=== PATIENT | male | born 1945 | race Caucasian/White ===

== ENCOUNTER 2020-01-06 23:11 | Inpatient (IN) ==
[2020-01-06] MEDS ORDERED: HYDROmorphone INJ 1 MG/ML SYRINGE IV STA (23:25)
[2020-01-06] MEDS ORDERED: HYDROmorphone INJ 0.5 MG/0.5 ML SYR IV PRN (23:25)
--- NOTE | 2020-01-06 23:31 | Emergency Department Note ---
ED Provider Note Name: MARYAM GONZALEZ Age: 74 Sex: M Arrives Via: Ambulance Informant: Patient, EMS ED Provider: Eris Velázquez MD Chief Complaint: Right thigh pain Impression: Closed fracture of proximal end of femur Fall Hematoma of right thigh Medical Decision Making: Very pleasant male with history of htn, dlp, and metastatic prostate ca arrives after trip and fall injuring right thigh. No head, neck or other injury. No vascular injury by exam with distal n/v intact. Work up with mild hyperglycemia otherwise OK. Imaging with right proximal femur fracture. Otherwise no acute fracture/dislocation. Comfortable with pain meds. Discussed with Ortho who agree with treating here and that no need for traction at this time. Hospitalist in to evaluate further. Triage/Nursing Notes reviewed by Me Differentials:Fracture, dislocation, n/v injury, non-mechanical fall, amongst other pathologies. Vital Signs: reviewed and remarkable for no significant abnormalities Interventions: Saline Lock, Dilaudid 1mg IV Labs:Reviewed and remarkable for mild hyperglycemia Imaging: X ray results are stated below per my interpretation: Chest: 1 view: No infiltrate, no effusion, normal cardiac border. Pelvis: 1 view: Right femur fracture Femur Right: 3 view: Displaced proximal femur fracture Tib Fib Left: 1 view: No fracture, no dislocation EKG:Per My Interpretation: Indication Pre-Op: NSR 65 bpm, qtc 484 with PVC. No Ectopy. Does have a slightly prolonged QTC for his rate. No previous for comparison Consults:Dr Brooks Ortho - admit to med, hold off on traction for now. Plan: Disposition:Hospitalization. Condition: Good Blood pressure:Normal.No Referral necessary History of Present Illness:74 / M arrives for evaluation of right thigh pain. Patient was walking around [place] site this evening and tripped over table landing awkwardly on right hip. Patient notes unable to walk due to pain and leg being "wobbly." Denies other injuries. No LOC, head injury, neck pain, cp, sob, back pain, nor other symptoms. Denies other injuries. Denies blood thinner use other than asa 81mg Daily. He makes clear no weakness, sob, cp, lightheadedness prior to fall. 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 Patient notes pain worse with movement, better with rest. No previous joint/bone issues other than prostate cancer with concerns of spread to bones. ROS: See above HPI for pertinent positives & negatives. A total of 10 systems re viewed and were otherwise negative. 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 EYES: No scleral icterus, unremarkable pupils. ENT: Mucous membranes moist, no nasal congestion. NECK: No masses appreciated, nomeningismus, trachea is midline. RESPIRATORY: No dyspnea. Clear to auscultation and equal bilaterally. No wheeze, no rhonchi. CARDIOVASCULAR: Regular rate and rhythm.No murmurs, rubs, gallops appreciated. GASTROINTESTINAL: Abdomen soft, non-tender, no peritonitis.Bowel sounds positive.No masses appreciated. BACK: No midline tenderness, no CVA tenderness EXTREMITIES: deformity right proximal thigh with TTP, contusion left anterior tibia, otherwise normal motion all extremities, no cyanosis, no edema. NEUROLOGIC: Alert and oriented, no acute motor or sensory deficits, no focal weakness, cranial nerves grossly intact. SKIN: No rash, no jaundice, no diaphoresis. PSYCH: Appropriate GCS: 15 ED Course: Times/Reassessments: Much improved with IV dilaudid Eris Velázquez MD Impression & Plan Closed fracture of proximal end of femur, Fall, Hematoma of right thigh Past Med/Surg History Social History Preferred Language: Turkmen Communication Ability: Effective Pai Gow Manager Required: No Beliefs That Will Affect Care: None Current Living Situation: Spouse Feels Safe at Home: Yes Safety Concerns: Feels Safe At This Time Smoking Status: Never smoker Hx Alcohol Use: Yes Alcohol type: beer Hx Substance Use: No Results & Data Vital Signs Vital Signs - 24 hr 01/06/20 23:25 01/06/20 23:46 01/07/20 00:31 Temperature 36.4 C L Temperature Source Oral Pulse Rate 67 Pulse Rate [Bilateral Apical] 61 62 Respiratory Rate 18 18 18 Blood Pressure 132/76 Blood Pressure [Right Arm] 118/72 110/71 Blood Pressure Mean 94 Blood Pressure Mean [Right Arm] 87 84 Blood Pressure Position Lying Pulse Oximetry 94 92 93 Oxygen Delivery Method Room Air Room Air Room Air Sepsis Recent Fever Within 48 Hours No Sepsis Action Taken by Nursing No Action Required Laboratory Data Result diagrams: 01/06/20 23:30 01/06/20 23:30 Lab Results 01/06/20 01/06/20 01/06/20 Range/Units 23:30 23:30 23:30 WBC 12.62 H (4.8-10.8) K/uL RBC 4.23 L (4.7-6.1) M/uL Hgb 13.0 L (14.0-18.0) g/dL Hct 37.4 L (42-52) % MCV 88.4 (80-100) fL MCH 30.7 (25-34) pg MCHC 34.8 (32-36) g/dL RDW Std Deviation 44.5 (36.4-46.3) fL RDW Coeff of Pamela 13.7 (11.5-14.5) % Plt Count 198 (130-400) K/uL MPV 9.9 (7.4-10.4) fL Immature Gran % (Auto) 0.3 % Neut % (Auto) 56.2 % Lymph % (Auto) 32.5 % [place] % (Auto) 8.6 % Eos % (Auto) 2.2 % Baso % (Auto) 0.2 % Immature Gran # (Auto) 0.04 H (0.00-0.02) K/uL Neut # (Auto) 7.09 H (1.4-6.5) K/uL Lymph # (Auto) 4.10 H (1.2-3.4) K/uL [place] # (Auto) 1.08 H (0.11-0.59) K/uL Eos # (Auto) 0.28 (0-0.5) K/uL Baso # (Auto) 0.03 (0-0.2) K/uL PT 11.5 (9.0-12.0) Seconds INR 1.1 (0.9-1.1) APTT 22.8 (21.0-31.0) Seconds PTT Ratio 0.8 Sodium (136-145) mmol/L Potassium (3.5-5.1) mmol/L Chloride (98-107) mmol/L Carbon Dioxide (21-32) mmol/L Anion Gap (3-11) BUN (7-18) mg/dl Creatinine (0.6-1.4) mg/dl Est Cr Clr Drug Dosing ml/min Est GFR ( Amer) Est GFR (Non-Af Amer) BUN/Creatinine Ratio (10-20) Glucose (70-99) mg/dl Calcium (8.5-10.1) mg/dl Magnesium (1.8-2.4) mg/dl Blood Type A Positive Antibody Screen NEGATIVE 01/06/20 Range/Units 23:30 WBC (4.8-10.8) K/uL RBC (4.7-6.1) M/uL Hgb (14.0-18.0) g/dL Hct (42-52) % MCV (80-100) fL MCH (25-34) pg MCHC (32-36) g/dL RDW Std Deviation (36.4-46.3) fL RDW Coeff of Pamela (11.5-14.5) % Plt Count (130-400) K/uL MPV (7.4-10.4) fL Immature Gran % (Auto) % Neut % (Auto) % Lymph % (Auto) % [place] % (Auto) % Eos % (Auto) % Baso % (Auto) % Immature Gran # (Auto) (0.00-0.02) K/uL Neut # (Auto) (1.4-6.5) K/uL Lymph # (Auto) (1.2-3.4) K/uL [place] # (Auto) (0.11-0.59) K/uL Eos # (Auto) (0-0.5) K/uL Baso # (Auto) (0-0.2) K/uL PT (9.0-12.0) Seconds INR (0.9-1.1) APTT (21.0-31.0) Seconds PTT Ratio Sodium 135 L (136-145) mmol/L Potassium 3.2 L (3.5-5.1) mmol/L Chloride 104 (98-107) mmol/L Carbon Dioxide 28 (21-32) mmol/L Anion Gap 3.0 (3-11) BUN 27 H (7-18) mg/dl Creatinine 0.99 (0.6-1.4) mg/dl Est Cr Clr Drug Dosing 78.3 ml/min Est GFR ( Amer) 85.4 Est GFR (Non-Af Amer) 73.7 BUN/Creatinine Ratio 27.2 H (10-20) Glucose 182 H (70-99) mg/dl Calcium 8.5 (8.5-10.1) mg/dl Magnesium 2.2 (1.8-2.4) mg/dl Blood Type Antibody Screen Administered Medications Potassium Chloride 40 meq/ (Sodium Chloride) 1,020 mls @ 50 mls/hr IV .[id number] Stop: 02/06/20 02:39 Last Admin: 01/07/20 03:10 Dose: 50 mls/hr Documented by: [id number] Discontinued Medications Hydromorphone HCl (Dilaudid) 1 mg IV NOW STA Stop: 01/06/20 23:26 Last Admin: 01/06/20 23:41 Dose: 1 mg Documented by: [id number] Morphine Sulfate (Morphine Sulfate) Confirm Administered Dose 4 mg .ROUTE .STK- MED ONE Stop: 01/07/20 02:43 Last Admin: 01/07/20 02:45 Dose: 4 mg Documented by: [id number] Potassium Chloride (Klor-Con M20) 40 meq PO NOW STA Stop: 01/07/20 01:11 Last Admin: 01/07/20 01:47 Dose: 40 meq Documented by: [id number] Potassium Chloride (Klor-Con M20) 40 meq PO ONE ONE Stop: 01/07/20 03:01 Last Admin: 01/07/20 03:10 Dose: 40 meq Documented by: [id number] Discharge Plan Visit Data *Final* Discharge Date/Time: 01/07/20 02:20 Chief Complaint: Leg Injury/Pain Stated Complaint: LEG INJURY/FALL Other Complaint: Fall ED Provider: Eris Velázquez Discharge Problem: Closed fracture of proximal end of femur, Fall, Hematoma of right thigh Patient Disposition: Admitted As Inpatient Discharge Instructions Interventions: ED Discharge Assessment Last Done: 01/07/20 02:20 Discharge Problem: Fall Qualifiers: Encounter type: initial encounter Qualified Code(s): W19.XXXA - Unspecified fall, initial encounter Hematoma of right thigh Qualifiers: Encounter type: initial encounter Qualified Code(s): S70.11XA - Contusion of right thigh, initial encounter
[2020-01-06 23:46] LABS: Basophils # (auto) 0.03 K/uL (0-0.2); Basophils % (auto) 0.2 %; Eosinophils # (auto) 0.28 K/uL (0-0.5); Eosinophils % (auto) 2.2 %; Hematocrit (blood only) 37.4 % (42-52); Immature Granulocytes # (auto) 0.04 K/uL (0.00-0.02); Immature Granulocytes % (auto) 0.3 %; Lymphocytes % (auto) 32.5 %; Mean Corpuscular Hemoglobin 30.7 pg (25-34); Mean Corpuscular Hgb Conc 34.8 g/dL (32-36); Mean Corpuscular Volume 88.4 fL (80-100); Mean Platelet Volume 9.9 fL (7.4-10.4); Monocytes # (auto) 1.08 K/uL (0.11-0.59); Monocytes % (auto) 8.6 %; Neutrophils # (auto) 7.09 K/uL (1.4-6.5); Neutrophils % (auto) 56.2 %; Platelet Count 198 K/uL (130-400); RDW Coefficient of Variation 13.7 % (11.5-14.5); RDW Standard Deviation 44.5 fL (36.4-46.3); Red Blood Count 4.23 M/uL (4.7-6.1); White Blood Count 12.62 K/uL (4.8-10.8)
[2020-01-06 23:57] LABS: INR 1.1 (0.9-1.1); Partial Thromboplastin Ratio 0.8; Partial Thromboplastin Time 22.8 Seconds (21.0-31.0); Prothrombin Time 11.5 Seconds (9.0-12.0)
[2020-01-07 00:12] LABS: BUN Creatinine Ratio 27.2 (10-20); Calcium 8.5 mg/dl (8.5-10.1); Creatinine Clr Calc Pharmacy 78.3 ml/min; Est GFR (African American) 85.4; Est GFR (Non-African American) 73.7; Potassium 3.2 mmol/L (3.5-5.1)
[2020-01-07] MEDS ORDERED: POTASSIUM CHLORIDE 20 MEQ TABCR PO STA (01:10)
[2020-01-07 01:20] LABS: Magnesium 2.2 mg/dl (1.8-2.4)
--- NOTE | 2020-01-07 01:40 | History & Physical Report ---
Date of Service January 07, 2020 Assessment & Plan (1) Hip fracture, right: Traumatic hip fracture hypertension, stable PVCs on EKG likely secondary to hypokalemia secondary to diuretic Rx Systolic murmur on exam hyperlipidemia on statin Rx hx prediabetes as per patient prostate cancer status post surgery on Xgeva and Lupron Rx New onset anemia (patient unaware of prior diagnosis) Medical telemetry given PVCs Replace potassium, IVF, hold home diuretic for now Initiate beta-merlyn to suppress ectopy if still persistent despite normokalemia TTE RE systolic murmur Orthopedics consult RE R right hip fracture (ER provider already in touch with Dr. Brooks who recommends possible surgery in a.m. pending evaluation.) Final medical evaluation pending TTE results Check hemoglobin A1c Anemia work-up, transfuse PRBC if hemoglobin less than 7 and or for symptomatic anemia DVT prophylaxis. SCDs RE possible surgery (Recommend pharmacologic anticoagulation once bleeding risk is deemed to be minimal eligible pending Orthopedics evaluation.) Full code Text document was generated using [employer] voice recognition software. It may contain grammatical or spelling errors. Kindly contact undersigned for clarification of any documentation item in question. History of Present Illness Chief Complaint: Right hip pain Primary Care Provider: Dr. Talbot from [place], [place] History obtained from patient and records. Medical history significant for hypertension, hyperlipidemia, gout, prediabetes, prostate cancer status post surgery on Xgeva and Lupron Rx. Patient at a local campsite the last few days the last few days. His right hip bumped into a table at the [facility] site because it was too dark. Patient experience excruciating right hip pain which made him sit down. No chest pain, S OB, no LOC. Patient brought to the ER for evaluation. 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 Baseline Functionality : Still able to do housework at home without rest/exertional chest pain, S OB prior to injury Allergies Allergy/AdvReac Type Severity Reaction Status Date / Time No Known Allergies Allergy Unverified 01/07/20 00:56 Home Medications Home Medications Medication Instructions Recorded Confirmed Type allopurinol 300 mg PO DAILY 01/07/20 01/07/20 History aspirin 81 mg PO QAM 01/07/20 01/07/20 History calcium carbonate-vitamin D3 1 tab PO TID 01/07/20 01/07/20 History [Caltrate 600 plus D] cholecalciferol (vitamin D3) 500 unit PO QAM 01/07/20 01/07/20 History [Vitamin D3] denosumab [Xgeva] 22.5 mg SUBCUT . Q 3 MONTHS 01/07/20 01/07/20 History leuprolide (3 month) [Lupron Depot 125 mg IM . EVERY 3 MONTHS 01/07/20 01/07/20 History (3 month)] lisinopril-hydrochlorothiazide 1 tab PO DAILY 01/07/20 01/07/20 History magnesium 250 mg PO QAM 01/07/20 01/07/20 History omega 3-gqk-vrs-fish oil [Fish Oil] 1 cap PO QAM 01/07/20 01/07/20 History potassium gluconate 99 mg PO QAM 01/07/20 01/07/20 History red yeast rice 600 mg PO QAM 01/07/20 01/07/20 History rosuvastatin [Crestor] 10 mg PO DAILY 01/07/20 01/07/20 History Past Med/Surg History Social History Preferred Language: Albanian Communication Ability: Effective Test Deck Supervisor Required: No Beliefs That Will Affect Care: None Current Living Situation: Spouse Feels Safe at Home: Yes Safety Concerns: Feels Safe At This Time Smoking Status: Never smoker Hx Alcohol Use: Yes Alcohol type: beer Hx Substance Use: No Review of Systems Review of Systems: As per HPI, all 10 systems reviewed, all other ROS negative Physical Exam Physical Exam: GENERAL: Comfortable, obese, pleasant, no respiratory distress SKIN: Pallor , warm HEENT: Pale palpebral conjunctivae, no ptosis, dry buccal mucosa NECK : Supple, short neck, no tenderness CHEST : CTA, no tenderness HEART : RRR, systolic murmur ABDOMEN: Some distention, nontender EXTREMITIES : Right hip rotation with right hip tenderness no other conspicuous deformities noted NEUROLOGIC : Coherent, no facial asymmetry, no other gross focality Results & Data Vital Signs (Past 12 Hours) Vital Signs Temp Pulse Pulse Resp BP BP Pulse Ox 01/07/20 00:31 62 18 110/71 93 01/06/20 23:46 61 18 118/72 92 01/06/20 23:25 36.4 C L 67 18 132/76 94 Laboratory Results Laboratory Results WBC 12.62 K/uL (4.8-10.8) H 01/06/20 23:30 RBC 4.23 M/uL (4.7-6.1) L 01/06/20 23:30 Hgb 13.0 g/dL (14.0-18.0) L 01/06/20 23:30 Hct 37.4 % (42-52) L 01/06/20 23: MCV 88.4 fL (80-100) 01/06/20 23: MCH 30.7 pg (25-34) 01/06/20: MCHC 34.8 g/dL (32-36) 01/06/20: RDW Std Deviation 44.5 fL (36.4-46.3) 01/06/20: RDW Coeff of Pamela 13.7 % (11.5-14.5) 01/06/20: Plt Count 198 K/uL (130-400) 01/06/20: MPV 9.9 fL (7.4-10.4) 01/06/20 23:30 Immature Gran % (Auto) 0.3 % 01/06/20 23:30 Neut % (Auto) 56.2 % 01/06/20 23:30 Lymph % (Auto) 32.5 % 01/06/20 23:30 [place] % (Auto) 8.6 % 01/06/20 23:30 Eos % (Auto) 2.2 % 01/06/20 23:30 Baso % (Auto) 0.2 % 01/06/20 23:30 Immature Gran # (Auto) 0.04 K/uL (0.00-0.02) H 01/06/20 23:30 Neut # (Auto) 7.09 K/uL (1.4-6.5) H 01/06/20 23:30 Lymph # (Auto) 4.10 K/uL (1.2-3.4) H 01/06/20 23:30 [place] # (Auto) 1.08 K/uL (0.11-0.59) H 01/06/20 23:30 Eos # (Auto) 0.28 K/uL (0-0.5) 01/06/20 23:30 Baso # (Auto) 0.03 K/uL (0-0.2) 01/06/20 23:30 PT 11.5 Seconds (9.0-12.0) 01/06/20 23:30 INR 1.1 (0.9-1.1) 01/06/20 23:30 APTT 22.8 Seconds (21.0-31.0) 01/06/20 23:30 PTT Ratio 0.8 01/06/20 23:30 Sodium 135 mmol/L (136-145) L 01/06/20 23:30 Potassium 3.2 mmol/L (3.5-5.1) L 01/06/20 23:30 Chloride 104 mmol/L (98-107) 01/06/20 23:30 Carbon Dioxide 28 mmol/L (21-32) 01/06/20 23:30 Anion Gap 3.0 (3-11) 01/06/20 23:30 BUN 27 mg/dl (7-18) H 01/06/20 23:30 Creatinine 0.99 mg/dl (0.6-1.4) 01/06/20 23:30 Est Cr Clr Drug Dosing 78.3 ml/min 01/06/20 23:30 Est GFR ( Amer) 85.4 01/06/20 23:30 Est GFR (Non-Af Amer) 73.7 01/06/20 23:30 BUN/Creatinine Ratio 27.2 (10-20) H 01/06/20 23:30 Glucose 182 mg/dl (70-99) H 01/06/20 23:30 Calcium 8.5 mg/dl (8.5-10.1) 01/06/20 23:30 Magnesium 2.2 mg/dl (1.8-2.4) 01/06/20 23:30 Blood Type A Positive 01/06/20 23:30 Antibody Screen NEGATIVE 01/06/20 23:30 Diagnostic Findings Right femur x-ray as per my interpretation: Displaced R proximal femur fracture Chest x-ray as per my interpretation: Atelectasis, cardiomegaly, minimal congestion EKG as per my interpretation : Rate 65, NSR, normal axis, T wave flattening lateral leads, PVCs
[2020-01-07] MEDS ORDERED: POTASSIUM CHLORIDE 40 MEQ in SODIUM CHLORIDE 0.9% 1000ML 1,000 ML IV SCH (02:40)
[2020-01-07] MEDS ORDERED: MAGNESIUM HYDROXIDE SUSP 30 ML UDC PO PRN (02:40)
[2020-01-07] MEDS ORDERED: PROMETHAZINE HCL 12.5 MG in SODIUM CHLORIDE 0.9% 50 ML IV PRN ×2 (02:40→10:28)
[2020-01-07] MEDS ORDERED: ACETAMINOPHEN 325 MG TAB PO PRN (02:40)
[2020-01-07] MEDS ORDERED: bisacodyL 10 MG SUPP PR PRN (02:40)
[2020-01-07] MEDS ORDERED: NALOXONE HCL 0.4 MG/1 ML VIAL/CARP IV PRN (02:40)
[2020-01-07] MEDS ORDERED: MoRPHine SULFATE 4 MG/ML 1 ML CARP\\VIAL IV PRN (02:40)
[2020-01-07] MEDS ORDERED: MoRPHine SULFATE 4 MG/ML 1 ML CARP\\VIAL ONE (02:42)
[2020-01-07] MEDS ORDERED: POTASSIUM CHLORIDE 20 MEQ TABCR PO ONE (03:00)
[2020-01-07] MEDS ORDERED: HYDROmorphone INJ 0.5 MG/0.5 ML SYR IV STA (04:56)
[2020-01-07] MEDS ORDERED: HYDROmorphone INJ 0.5 MG/0.5 ML SYR ONE (05:08)
[2020-01-07 05:15] LABS: Appearance Urine Clear (Clear); Bilirubin Urine Negative (Negative); Blood Urine Negative (Negative); Color Urine Yellow; Glucose Urine UA Negative (Negative); Ketones Urine Negative (Negative); Leukocyte Esterase Urine Negative (Negative); Nitrite Urine Negative (Negative); Protein Urine Negative (Negative); Specific Gravity Urine 1.023 (1.000-1.030); Urobilinogen Urine Negative (Negative)
[2020-01-07] MEDS ORDERED: HYDROmorphone INJ 0.5 MG/0.5 ML SYR IV PRN (05:26)
[2020-01-07 05:53] LABS: Basophils # (auto) 0.01 K/uL (0-0.2); Basophils % (auto) 0.1 %; Hematocrit (blood only) 36.6 % (42-52); Hemoglobin 12.8 g/dL (14.0-18.0); Immature Granulocytes # (auto) 0.04 K/uL (0.00-0.02); Immature Granulocytes % (auto) 0.3 %; Lymphocytes # (auto) 1.51 K/uL (1.2-3.4); Lymphocytes % (auto) 10.5 %; Mean Corpuscular Hemoglobin 31.5 pg (25-34); Mean Corpuscular Volume 90.1 fL (80-100); Mean Platelet Volume 9.7 fL (7.4-10.4); Monocytes # (auto) 0.84 K/uL (0.11-0.59); Monocytes % (auto) 5.8 %; Neutrophils # (auto) 11.96 K/uL (1.4-6.5); Neutrophils % (auto) 83.3 %; Platelet Count 198 K/uL (130-400); RDW Coefficient of Variation 13.8 % (11.5-14.5); RDW Standard Deviation 45.2 fL (36.4-46.3); Red Blood Count 4.06 M/uL (4.7-6.1); White Blood Count 14.36 K/uL (4.8-10.8)
[2020-01-07 06:32] LABS: BUN Creatinine Ratio 28.4 (10-20); Calcium 8.5 mg/dl (8.5-10.1); Creatinine Clr Calc Pharmacy 83.3 ml/min; Est GFR (African American) 92.1; Est GFR (Non-African American) 79.5
[2020-01-07 06:35] LABS: Ferritin 206.5 ng/ml (8-388)
[2020-01-07 06:37] LABS: Albumin Level 3.3 gm/dl (3.4-5.0); Bilirubin Direct 0.1 mg/dl (0-0.2); Thyroid Stimulating Hormone 5.65 uIu/ml (0.300-4.500); Total Protein 6.8 gm/dl (6.4-8.2)
--- NOTE | 2020-01-07 06:44 | XRay Report ---
XR tibia fibula LT 2V HISTORY: 74 years-old Male fall, left lower eg injury acute pain of the left lower leg COMPARISON: None TECHNIQUE: 2 views of the left tibia and fibula FINDINGS: Osteoarthritis of the knee. Mild to moderate tibiotalar osteoarthritis. Prominent enthesophytes of th e calcaneus. No acute fracture, dislocation or opaque foreign body. Arterial calcifications are noted . Mild soft tissue prominence of the proximal pretibial tissues. IMPRESSION: No acute fracture or dislocation. ACT 112: Negative or not required by law. The above report was generated using voice recognition software. It may contain grammatical, syntax o r spelling errors. Electronically signed by: Josue Duarte M.D. 01/07/2020 6:43 AM
--- NOTE | 2020-01-07 06:52 | XRay Report ---
XR pelvis 1-2V routine, XR femur RT 2V routine HISTORY: 74 years-old Male fall, right femur injury acute pain of the pelvis and right femur status post fall COMPARISON: None TECHNIQUE: AP view of the pelvis with 2 views of the right femur FINDINGS: PELVIS: 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 No acute fracture or dislocation of the lef t hip. There is an acute transverse fracture of the proximal diaphyseal aspect of the right femur, ap proximately 3.0 cm distal to the inferior aspect of the lesser trochanter. There is 4.5 cm apposition and 3.4 cm medial displacement with 14 degrees apex lateral angulation. Surgical clips project over the pelvis. Vascular calcifications are noted. FEMUR: Acute proximal femoral fracture as above with the femoral shaft component displaced posteriorly 5.0 c m. Mid and distal aspects of the femur appear intact. Osteoarthritis of the knee. Soft tissue swellin g of the distal thigh.. IMPRESSION: Acute displaced, angulated and foreshortened fracture of the right proximal femoral diaph ysis ACT 112: Negative or not required by law. The above report was generated using voice recognition software. It may contain grammatical, syntax o r spelling errors. Electronically signed by: Josue Duarte M.D. 01/07/2020 6:50 AM
--- NOTE | 2020-01-07 07:43 | XRay Report ---
XR chest 1V portable HISTORY: 74 years-old Male fall, injury acute chest trauma status post fall COMPARISON: None TECHNIQUE: Portable AP view of the chest FINDINGS: Cardiac silhouette is enlarged. Widened mediastinum may be projectional. Mild linear bibasilar densit ies. No pneumothorax, large pleural effusion or overt pulmonary edema. Degenerative changes of the sh oulders and spine. IMPRESSION: 1. Mild linear bibasilar densities suggest scarring/atelectasis. 2. Cardiomegaly. ACT 112: Negative or not required by law. The above report was generated using voice recognition software. It may contain grammatical, syntax o r spelling errors. Electronically signed by: Josue Duarte M.D. 01/07/2020 7:41 AM
[2020-01-07 07:54] LABS: Potassium 4.4 mmol/L (3.5-5.1)
[2020-01-07] MEDS: lisinopriL 20 MG TAB PO SCH (09:18)
[2020-01-07] MEDS: allopurinoL 300 MG TAB PO SCH (09:18)
[2020-01-07] MEDS: ROSUVASTATIN CALCIUM 10 MG TAB PO SCH (09:19)
[2020-01-07] MEDS: CHOLECALCIFEROL 1,000 UNITS 25 MCG TAB PO SCH (09:19)
--- NOTE | 2020-01-07 09:35 | Hospitalist Progress Note ---
Date of Service January 07, 2020 Assessment & Plan (1) Hip fracture, right: Traumatic hip fracture Patient's RCRI is 0 Has no symptoms of ACS Acceptable risk for surgery. Continue n.p.o. for right femoral fixation by ortho (2) Hypertension Controlled Continue home lisinopril hydrochlorothiazide (3) Hypokalemia Resolved (4) Leukocytosis Likely reactive following fracture TSH is elevated. Check free T4 Follow-up A1c (5) Prostate cancer status post surgery on Lupron Also on Xgeva DVT prophylaxis. SCDs for now until after surgery (Recommend pharmacologic anticoagulation once bleeding risk is deemed to be minimal eligible pending Orthopedics evaluation.) Full code Admission and Anticipated Discharge Date Admission Date: January 07, 2020 Subjective Patient seen and examined. Only complaint is right hip pain on movement. Denies any chest pain, shortness of breath, dyspnea on exertion, palpitations, orthopnea, PND, leg swelling. Physical Exam Constitutional: + well hydrated; no acute distress Eyes: PERRL, conjunctivae normal, anicteric sclerae ENMT: external ear and nose normal, oropharynx normal Respiratory: normal respiratory effort, lungs clear to auscultation Cardiovascular: Rate/Rhythm: regular rate and regular rhythm Extremities: no pedal edema Gastrointestinal (Abdomen): normal bowel sounds, soft, nontender, no hepatosplenomegaly Musculoskeletal: Right hip is flexed and externally rotated. No obvious bruise/skin tear. Neurologic: PERRL, EOMI, accommodation nl, no face palsy, no dysarthria Psychiatric: A+Ox3, euthymic affect Results & Data ([facility]) Vital Signs (Past 12 Hours) Vital Signs Temp Pulse Pulse Resp BP BP Pulse Ox 01/07/20 07:54 69 01/07/20 07:36 36.7 C 85 16 137/74 92 01/07/20 06:41 56 L 01/07/20 01:48 72 18 128/74 95 01/07/20 00:31 62 18 110/71 93 01/06/20 23:46 61 18 118/72 92 01/06/20 23:25 36.4 C L 67 18 132/76 94 Laboratory Results Short CBC 01/06/20 01/07/20 Range/Units 23:30 05:41 WBC 12.62 H 14.36 H (4.8-10.8) K/uL Hgb 13.0 L 12.8 L (14.0-18.0) g/dL Hct 37.4 L 36.6 L (42-52) % Plt Count 198 198 (130-400) K/uL BMP 01/06/20 01/07/20 23:30 05:41 Sodium 135 L 135 L Potassium 3.2 L 4.4 D Chloride 104 103 Carbon Dioxide 28 24 BUN 27 H 26 H Creatinine 0.99 0.93 Glucose 182 H 195 H Calcium 8.5 8.5 Liver Function 01/07/20 Range/Units 05:41 Total Bilirubin 1.0 (0.2-1) mg/dl Direct Bilirubin 0.1 (0-0.2) mg/dl AST 47 H (15-37) U/L ALT 58 (12-78) U/L Alkaline Phosphatase 37 L (45-117) U/L Albumin 3.3 L (3.4-5.0) gm/dl Urine 01/07/20 Range/Units 04:30 Urine Color Yellow Urine Appearance Clear (Clear) Urine pH 5.0 (4.5-7.5) Ur Specific [place] 1.023 (1.000-1.030) Urine Protein Negative (Negative) Urine Glucose (UA) Negative (Negative)
--- NOTE | 2020-01-07 10:09 | Consultation Report ---
DATE OF CONSULTATION: 01/07/2020 ORTHOPEDIC CONSULTATION CHIEF COMPLAINT: Right hip pain. SUBJECTIVE: The patient is a 74-year-old gentleman from the [place] area who was at his local camp when he ran into a picnic table with the right thigh region. He had immediate pain and disability. He states he did not fall but sat down, but was unable to get up afterwards. He was brought to [facility] ED for evaluation. X-rays revealed a right femur fracture. The patient was subsequently admitted to the hospital by the medical service and an orthopedics' consult was asked for. The patient is generally healthy but does have a history of hypertension, hyperlipidemia, gout, prediabetes and has been treated for prostate cancer with surgery and is currently on Xgeva and Lupron. PHYSICAL EXAMINATION: Currently, he is lying in bed. The right leg is somewhat flexed up. He denies any other injuries. He denies any head, neck or back pain. He is alert and oriented and is able to have a clear, fluid conversation. The right hip and thigh region is moderately tender and swollen. His toes are mobile. Neurovascularly intact on the right lower extremity. X-RAYS: Reviewed and show a relatively transverse displaced subtrochanteric right femur fracture. ASSESSMENT: Right displaced subtrochanteric femur fracture. PLAN: The above was discussed with the patient. He had a transthoracic echo ordered, which was done about an hour ago. We are awaiting the results of that. He is n.p.o. for surgery. As long as the echo was relatively clear, plan is to proceed with a right femoral intramedullary nailing here later today. Dr. Brooks is the physician micro[employer] dynamics ax consultant and will be in to see and discuss with the patient as well. RENA
--- NOTE | 2020-01-07 10:24 | Anesthesiology Consultation ---
Date of Service January 07, 2020 Assessment & Plan Chart Review Chart Review: Acceptable Risk for Surgery Consults Requested none History Surgery Operation Date: 01/07/20 10:00 Proposed Procedures p Intramedullary Kody Femur(Right) - Fercho Brooks DO Height/Weight Height: 5 ft 10 in Weight: 108.5 kg Allergies Allergy/AdvReac Type Severity Reaction Status Date / Time No Known Allergies Allergy Unverified 01/07/20 00:56 Medications Home Medications Medication Instructions Recorded Confirmed Last Taken allopurinol 300 mg PO DAILY 01/07/20 01/07/20 01/05/20 aspirin 81 mg PO QAM 01/07/20 01/07/20 01/06/20 calcium carbonate-vitamin D3 1 tab PO TID 01/07/20 01/07/20 01/06/20 [Caltrate 600 plus D] cholecalciferol (vitamin D3) 500 unit PO QAM 01/07/20 01/07/20 01/06/20 [Vitamin D3] denosumab [Xgeva] 22.5 mg SUBCUT . Q 3 MONTHS 01/07/20 01/07/20 12/29/19 leuprolide (3 month) [Lupron Depot 125 mg IM . EVERY 3 MONTHS 01/07/20 01/07/20 12/29/19 (3 month)] lisinopril-hydrochlorothiazide 1 tab PO DAILY 01/07/20 01/07/20 01/05/20 magnesium 250 mg PO QAM 01/07/20 01/07/20 01/06/20 omega 4-spg-hrb-fish oil [Fish Oil] 1 cap PO QAM 01/07/20 01/07/20 01/06/20 potassium gluconate 99 mg PO QAM 01/07/20 01/07/20 01/06/20 red yeast rice 600 mg PO QAM 01/07/20 01/07/20 01/06/20 rosuvastatin [Crestor] 10 mg PO DAILY 01/07/20 01/07/20 01/05/20 Active Medications Generic Name Dose Route Start Last Admin Trade Name Freq PRN Reason Stop Dose Admin Allopurinol 300 mg 01/07/20 09:00 01/07/20 09:18 Zyloprim PO 02/06/20 08:59 300 mg DAILY FARZANEH Administration Potassium Chloride 40 meq/ 1,020 mls @ 50 mls/hr 01/07/20 02:40 01/07/20 03:10 Sodium Chloride IV 02/06/20 02:39 50 mls/hr .[id number] FARZANEH Administration Lisinopril 20 mg 01/07/20 09:00 01/07/20 09:18 Zestril PO 02/06/20 08:59 20 mg QAM FARZANEH Administration Rosuvastatin Calcium 10 mg 01/07/20 09:00 01/07/20 09:19 Crestor PO 02/06/20 08:59 10 mg DAILY FARZANEH Administration Vitamin D 500 units 01/07/20 09:00 01/07/20 09:19 Vitamin D3 PO 02/06/20 08:59 500 units QAM FARZANEH Administration NPO Date Last Intake of Fluids: 01/07/20 Time Last Intake of Fluids: 09:00 Last Intake of Fluids Comment: sip with am meds Date Last Intake of Solids: 01/07/20 Time Last Intake of Solids: 00:00 Social History Smoking Status: Never smoker Hx Alcohol Use: Yes Alcohol type: beer alcohol intake frequency: holidays/special occasions only Hx Substance Use: No Physical Exam Vital Signs Last Vital Signs Temp 36.7 C 01/07/20 07:36 Pulse 69 01/07/20 07:54 Resp 16 01/07/20 07:36 BP 137/74 01/07/20 07:36 Pulse Ox 92 01/07/20 07:36 Testing Laboratory Results 01/07/20 05:41 01/07/20 05:41 PT 11.5 Seconds (9.0-12.0) 01/06/20 23:30 INR 1.1 (0.9-1.1) 01/06/20 23:30 APTT 22.8 Seconds (21.0-31.0) 01/06/20 23:30 Urine Color Yellow 01/07/20 04:30 Urine Appearance Clear (Clear) 01/07/20 04:30 Urine pH 5.0 (4.5-7.5) 01/07/20 04:30 Ur Specific [place] 1.023 (1.000-1.030) 01/07/20 04:30 Urine Protein Negative (Negative) 01/07/20 04:30 Urine Glucose (UA) Negative (Negative) 01/07/20 04:30 Urine Ketones Negative (Negative) 01/07/20 04:30 Urine Nitrite Negative (Negative) 01/07/20 04:30 Ur Leukocyte Esterase Negative (Negative) 01/07/20 04:30 Blood Type A Positive 01/06/20 23:30 Antibody Screen NEGATIVE 01/06/20 23:30
[2020-01-07] MEDS ORDERED: ONDANSETRON INJ 2 MG/ML 2 ML VIAL IV PRN (10:28)
[2020-01-07] MEDS ORDERED: ePHEDrine sulfate 50 MG/ML AMP IV PRN (10:28)
[2020-01-07] MEDS ORDERED: ATROPINE SULFATE 0.1 MG/ML 10ML SYR IV PRN (10:28)
[2020-01-07] MEDS ORDERED: METOCLOPRAMIDE HCL INJ 5 MG/ML 2 ML VIAL IV PRN (10:28)
[2020-01-07] MEDS ORDERED: fentaNYL citrate 100 MCG/2 ML VIAL IV PRN (10:28)
[2020-01-07] MEDS ORDERED: MIDAZOLAM HCL 1 MG/ML 2ML VIAL ONE (10:29)
[2020-01-07] MEDS ORDERED: KETAMINE HCL INJ 50 MG/ML 10 ML VIAL ONE (10:29)
[2020-01-07] MEDS ORDERED: PROPOFOL IV EMULSION 10 MG/ML 20 ML VIAL IV ONE ×3 (10:29→12:52)
[2020-01-07] MEDS ORDERED: fentaNYL citrate 100 MCG/2 ML VIAL ONE (10:32)
[2020-01-07 10:57] LABS: Folate (Folic Acid) 20.34 ng/ml (>5.38)
--- NOTE | 2020-01-07 11:08 | History & Physical Bridge Note ---
Date of Service January 07, 2020 History & Physical Bridge Note I have examined the patient, reviewed the History & Physical and in the interval since the performance of the History & Physical I have noted the following changes of clinical significance: no changes noted
[2020-01-07] MEDS ORDERED: CEFAZOLIN 3000MG 72.5 ML IV ONE (11:25)
[2020-01-07] MEDS ORDERED: BUPIVACAINE 0.5 % 5 MG/1 ML MPF 30ML VIAL ONE (13:22)
--- NOTE | 2020-01-07 13:50 | Fluoroscopy Report ---
FL hip RT 2-3V HISTORY: 74 years-old Male RIGHT TROCH NAIL dense post placement of an intratrochanteric nail the ri ght femur COMPARISON: Right femur radiographs 01/06/2020 TECHNIQUE: 6 spot fluoroscopic images of the right femur were obtained utilizing 346.1 seconds fluoro scopy time FINDINGS: Status post placement of an intratrochanteric nail with elongated medullary indy fixating the previous ly described acute fracture of the proximal diaphyseal right femur. There is improved alignment with mild persistent posterior displacement. The hardware appears intact. Severe right hip osteoarthritis. Expected postoperative soft tissue swelling with deep tissue air. IMPRESSION: Fluoroscopic assistance as above. Please see operative report for further details. ACT 112: Negative or not required by law. The above report was generated using voice recognition software. It may contain grammatical, syntax o r spelling errors. Electronically signed by: Josue Duarte M.D. 01/07/2020 1:48 PM
--- NOTE | 2020-01-07 13:53 | Post Operative Brief Note ---
Immediate Post Op Note v1 Date of Surgery January 07, 2020 Pre & Post Diagnosis Operation Date: 01/07/20 12:00 Pre-Op Diagnosis: Right displaced subtrochanteric hip fracture Post-Op Diagnosis: Right displaced subtrochanteric hip fracture I identified the patient and participated in the time-out.: Yes Procedure Operation Date: 01/07/20 12:00 Actual Procedures p Open reduction internal fixation right displaced subtrochanteric hip fracture with Synthes intramedullary trochanteric nail 11 mm x 130 degree x 380 mm in length, 11 mm x 110 mm helical blade, 5 mm x 44 mm and 5 mm x 46 mm locking screws. (Right) - Fercho Brooks DO Surgeon Fercho Brooks DO Lacrosse Coach Tuan scott PA-C Estimated Blood Loss 55 Findings Consistent with Post-Op Diagnosis Specimens None Drains Mcpherson Catheter (patient came into the OR with mcpherson intact. 750 ml output at start of surgery) Anesthesia Type Spinal MAC Complications none Disposition Accompanied Patient To Recovery: Yes Disposition: Recovery Room
--- NOTE | 2020-01-07 14:17 | Operative Report (OR) ---
DATE OF OPERATION: 01/07/2020 PREOPERATIVE DIAGNOSIS: Right displaced subtrochanteric hip fracture. POSTOPERATIVE DIAGNOSIS: Right displaced subtrochanteric hip fracture. PROCEDURE: Open reduction and internal fixation of right displaced subtrochanteric hip fracture with a Synthes 11 mm x 130 degree titanium cannulated trochanteric nail, measuring 380 mm in length, 11 mm x 110 mm titanium helical blade and two 5 mm x 44 mm and 5 mm x 46 mm transverse locking screws. SURGEON: Fercho Brooks DO. PROPELLER ENGINEER: Tuan Boothe PA-C who was present for patient positioning, sterile prep and drape, management of retractors and instruments. He was present through the critical portions of the case including wound closure, application of sterile dressing and transport of the patient to recovery. ANESTHESIA: Spinal with sedation and local. SPECIMENS: None. DRAINS: None. COMPLICATIONS: None. BLOOD LOSS: 55 mL. PERTINENT HISTORY: This is a 74-year-old gentleman who is currently treated for prostate cancer, struck his right proximal thigh forcefully on a picnic table, felt immediate pain and inability to ambulate, transported to [facility], at which point he was radiographed and stabilized and then admitted to the hospitalist service with orthopedics' consult due to his displaced subtrochanteric right hip fracture. After appropriate optimization was performed, the patient was scheduled for surgery as indicated. All potential risks, benefits, complications, alternatives, rehab potential for incomplete relief of symptoms, need for further surgery, DVT, PE, , persistent pain, swelling, scarring, weakness, neurovascular injury, hardware failure, nonunion, malunion, bone fracture in addition to potential exposure to influenza and wound complications were discussed with the patient. The patient decided to proceed with the procedure as indicated. PROCEDURE DESCRIPTION: The patient was transferred to the operative suite. The proper site was identified. The consent was reviewed, the patient was then administered sedation and spinal anesthetic. Once appropriate, the patient then transferred to the fracture table where the lower extremity was placed in fracture table traction and the nonoperative leg was placed in the well leg price. All bony prominences were properly padded and protected. The padded post was placed in the peroneal and the patient was positioned appropriately. Next the right leg was placed on traction and reduction of the fracture was performed under fluoroscopic control. Next the operative hip was then sterilely prepped and draped in the usual fashion. Next a 10-blade scalpel incision was used to make an incision proximal to the greater trochanter. The incision was deep in the subcutaneous tissue and fascia and the tip of the greater trochanter was then palpated followed by placement of a guide pin under fluoroscopic control driven into the greater trochanter down to the level of the less trochanter. This was confirmed in AP and lateral projections followed by placement of the proximal reamer over the cannulated guide pin. Next the reamer was then removed using the soft tissue protector, which was also removed. Next the ball tip guide indy was placed into the proximal femur under fluoroscopic control confirmed with AP and lateral fluoroscope projections. Next the trochanteric nail was then passed over the guide indy into the femur, the guide indy was removed and then under fluoroscopic control appropriate level of the femoral nail was then placed in AP projections. Next the targeting device was then fixed to the driving handle and 10-blade scalpel incision was made in the lateral aspect of the thigh. Next the tissue protector and cannulated guide system was then passed into the soft tissue until it was securely fixed against a lateral aspect of the femoral cortex. This was also confirmed under C-arm. Next the guide pin for the spiral blade was driven into the lateral aspect of the femur confirming this with AP lateral projections until the guide pin was in the center of the femoral neck and head approximately 5 mm from the subcortical bone of the femur. Next the spiral blade was then measured and then the lateral cortex was then drilled with the cortex reamer followed by use of the triple reamer with the depth stop set at appropriate depth. In this case, an 11 mm x 110 mm titanium helical blade was then inserted over the cannulated guide indy under fluoroscopic control. This was seated appropriately then traction was reduced from the limb and the fracture was then gently compressed and then locked proximally with the flexible screwdriver. Next the spiral blade was then disengaged from its insertion handle, insertion handle was then removed and the guide pin was removed from the femoral neck and head. Next the lateral targeting arm was used to insert the distal locking screw. First a 10-blade scalpel incision was made in the lateral aspect of the thigh, captured drill sleeves were then tamped gently to the lateral aspect of the femoral cortex then the locking screw hole was then drilled, measured and then an appropriate length screw was placed to lock the distal aspect of the nail. Next targeting sleeves were then removed. The insertion arm was then removed from the nail and final x-rays were obtained in AP and lateral projections. All incisions were then copiously irrigated with sterile normal saline. The proximal gluteus fascia was then closed using interrupted #1 Vicryl, the dermis was closed using buried interrupted 2-0 Vicryl sutures in all three incisions and the skin was then closed using skin james. A sterile compressive dressing consisting of Xeroform gauze, sterile 4 x 4's and Tegaderm was applied. The patient was then awakened and taken to recovery in stable condition. I attest to the content of the Intraoperative Record and any orders documented therein. Any exception s are noted below.
--- NOTE | 2020-01-07 14:49 | Anesthesiology Progress Note ---
Date of Service January 07, 2020 Anesthesia Post Procedure Vital Signs Vital Signs: Temp Pulse Pulse Pulse Resp BP BP 01/07/20 14:30 65 16 127/79 01/07/20 14:15 36.6 C 67 16 135/79 01/07/20 14:05 63 18 123/75 01/07/20 13:55 64 18 127/75 01/07/20 13:47 36.4 C L 69 16 126/81 01/07/20 07:54 69 01/07/20 07:36 36.7 C 85 16 137/74 01/07/20 06:41 56 L 01/07/20 01:48 72 18 128/74 01/07/20 00:31 62 18 110/71 01/06/20 23:46 61 18 118/72 01/06/20 23:25 36.4 C L 67 18 132/76 Pulse Ox 01/07/20 14:30 94 01/07/20 14:15 95 01/07/20 14:05 97 01/07/20 13:55 99 01/07/20 13:47 99 01/07/20 07:54 01/07/20 07:36 92 01/07/20 06:41 01/07/20 01:48 95 01/07/20 00:31 93 01/06/20 23:46 92 01/06/20 23:25 94 Pain Intensity Right Leg: Pain Intensity: 6 Transfer of Care Handoff Completed per policy Notes Mental Status: alert / awake / arousable and participated in evaluation Patient Amnestic to Procedure: Yes Nausea / Vomiting: adequately controlled Pain: adequately controlled Airway Patency, RR, SpO2: stable & adequate BP & HR: stable & adequate Hydration State: stable & adequate Anesthetic Complications: no major complications apparent
--- NOTE | 2020-01-07 16:11 | XRay Report ---
XR femur RT 2V routine HISTORY: 74 years-old Male post op right IM nailing status post placement of right femoral intratro chanteric nail. COMPARISON: Right femur radiographs 01/06/2020 TECHNIQUE: 2 views of the right femur FINDINGS: Status post placement of an intratrochanteric nail with medullary indy fixating the previously describ ed proximal femoral diaphyseal fracture. There is improved alignment with mild persistent posterior c ortical displacement. Overlying skin james are noted along with expected postoperative soft tissue swelling with deep tissue air. At least moderate right hip osteoarthritis. Surgical clips of the righ t hemipelvis. IMPRESSION: Improved alignment of the proximal femoral diaphyseal fracture status post placement of a n intratrochanteric nail with medullary indy. ACT 112: Negative or not required by law. The above report was generated using voice recognition software. It may contain grammatical, syntax o r spelling errors. Electronically signed by: Josue Duarte M.D. 01/07/2020 4:09 PM
--- NOTE | 2020-01-07 18:29 | Electrocardiogram Report ---
Test Reason : Blood Pressure : / mmHG Vent. Rate : 065 BPM Atrial Rate : 065 BPM P-R Int : 200 ms QRS Dur : 082 ms QT Int : 466 ms P-R-T Axes : 002 054 071 degrees QTc Int : 484 ms Sinus rhythm with occasional Premature ventricular complexes Prolonged QT Abnormal ECG No previous ECGs available Confirmed by José Manuel Curiel ([id number]) on 01/07/2020 6:28:55 PM Referred By: REFERRED SELF Confirmed By:Rakesh Curiel
[2020-01-07] MEDS ORDERED: CALCIUM CARBONATE 500 MG CHEWABLE TAB PO PRN (18:50)
[2020-01-07] MEDS: CEFAZOLIN 2000MG 2,000 MG/15 ML SYR IV SCH (20:07)
[2020-01-07] MEDS: OXYCODONE HCL IR 5 MG TAB (IMMEDIATE RELEASE) PO PRN (21:23)
[2020-01-07] MEDS: DOCUSATE SODIUM 100 MG CAP PO SCH (21:24)
[2020-01-08] MEDS: CEFAZOLIN 2000MG 2,000 MG/15 ML SYR IV SCH ×2 (04:58→13:17)
[2020-01-08 05:12] LABS: Hematocrit (blood only) 31.4 % (42-52); Hemoglobin 10.6 g/dL (14.0-18.0); Mean Corpuscular Hemoglobin 30.5 pg (25-34); Mean Corpuscular Hgb Conc 33.8 g/dL (32-36); Mean Corpuscular Volume 90.5 fL (80-100); Mean Platelet Volume 9.7 fL (7.4-10.4); Platelet Count 169 K/uL (130-400); RDW Coefficient of Variation 13.9 % (11.5-14.5); RDW Standard Deviation 45.6 fL (36.4-46.3); Red Blood Count 3.47 M/uL (4.7-6.1); White Blood Count 12.12 K/uL (4.8-10.8)
[2020-01-08 05:39] LABS: BUN Creatinine Ratio 22.4 (10-20); Calcium 7.6 mg/dl (8.5-10.1); Creatinine Clr Calc Pharmacy 90.1 ml/min; Est GFR (African American) 97.6; Est GFR (Non-African American) 84.2; Potassium 4.2 mmol/L (3.5-5.1)
[2020-01-08 07:05] LABS: Estimated Average Glucose 137 mg/dl; Hemoglobin A1C 6.4 % (4.5-5.6)
[2020-01-08] MEDS: DOCUSATE SODIUM 100 MG CAP PO SCH ×2 (08:09→21:22)
[2020-01-08] MEDS: ASPIRIN 81 MG ECTAB PO SCH ×2 (08:09→21:22)
[2020-01-08] MEDS: CHOLECALCIFEROL 1,000 UNITS 25 MCG TAB PO SCH (08:10)
[2020-01-08] MEDS: ROSUVASTATIN CALCIUM 10 MG TAB PO SCH (08:10)
[2020-01-08] MEDS: lisinopriL 20 MG TAB PO SCH (08:11)
[2020-01-08] MEDS: allopurinoL 300 MG TAB PO SCH (08:11)
--- NOTE | 2020-01-08 09:53 | Orthopedic Progress Note ---
Date of Service January 08, 2020 Assessment & Plan (1) Closed fracture of proximal end of femur: POD 1 s/p Right TFN. PT/OT - PWB DVT Prophylaxis - ASA bid, SCD's Continue current pain regimen DC planning - services most likely ; pt curious about possible rehab stay. Will see how he progresses in PT. Admission and Anticipated Discharge Date Admission Date: January 07, 2020 Subjective Pt getting from chair to the bed as I was walking in. States some soreness in the hip but tolerating well. No other complaints. Physical Exam Physical Exam: Dressings C/D/I. Thigh with some swelling but soft. Calves soft,NT. NV intact. Results & Data ([facility]) Vital Signs (Past 12 Hours) Vital Signs Temp Pulse Resp BP Pulse Ox Pulse Ox 01/08/20 07:08 36.8 C 55 L 20 115/71 92 01/08/20 00:05 92 01/07/20 23:27 36.6 C 70 18 115/68 92 Laboratory Results Laboratory Results WBC 12.12 K/uL (4.8-10.8) H 01/08/20 04:52 RBC 3.47 M/uL (4.7-6.1) L 01/08/20 04:52 Hgb 10.6 g/dL (14.0-18.0) L 01/08/20 04:52 Hct 31.4 % (42-52) L 01/08/20 04:52 MCV 90.5 fL (80-100) 01/08/20 04:52 MCH 30.5 pg (25-34) 01/08/20 04:52 MCHC 33.8 g/dL (32-36) 01/08/20 04:52 RDW Std Deviation 45.6 fL (36.4-46.3) 01/08/20 04:52 RDW Coeff of Pamela 13.9 % (11.5-14.5) 01/08/20 04:52 Plt Count 169 K/uL (130-400) 01/08/20 04:52 MPV 9.7 fL (7.4-10.4) 01/08/20 04:52 Immature Gran % (Auto) 0.3 % 01/07/20 05:41 Neut % (Auto) 83.3 % 01/07/20 05:41 Lymph % (Auto) 10.5 % 01/07/20 05:41 [place] % (Auto) 5.8 % 01/07/20 05:41 Eos % (Auto) 0.0 % 01/07/20 05:41 Baso % (Auto) 0.1 % 01/07/20 05:41 Immature Gran # (Auto) 0.04 K/uL (0.00-0.02) H 01/07/20 05:41 Neut # (Auto) 11.96 K/uL (1.4-6.5) H 01/07/20 05:41 Lymph # (Auto) 1.51 K/uL (1.2-3.4) 01/07/20 05:41 [place] # (Auto) 0.84 K/uL (0.11-0.59) H 01/07/20 05:41 Eos # (Auto) 0.00 K/uL (0-0.5) 01/07/20 05:41 Baso # (Auto) 0.01 K/uL (0-0.2) 01/07/20 05:41 PT 11.5 Seconds (9.0-12.0) 01/06/20 23:30 INR 1.1 (0.9-1.1) 01/06/20 23:30 APTT 22.8 Seconds (21.0-31.0) 01/06/20 23:30 PTT Ratio 0.8 01/06/20 23:30 Sodium 135 mmol/L (136-145) L 01/08/20 04:52 Potassium 4.2 mmol/L (3.5-5.1) 01/08/20 04:52 Chloride 103 mmol/L (98-107) 01/08/20 04:52 Carbon Dioxide 25 mmol/L (21-32) 01/08/20 04:52 Anion Gap 7.0 (3-11) 01/08/20 04:52 BUN 19 mg/dl (7-18) H 01/08/20 04:52 Creatinine 0.86 mg/dl (0.6-1.4) 01/08/20 04:52 Est Cr Clr Drug Dosing 90.1 ml/min 01/08/20 04:52 Est GFR ( Amer) 97.6 01/08/20 04:52 Est GFR (Non-Af Amer) 84.2 01/08/20 04:52 BUN/Creatinine Ratio 22.4 (10-20) H 01/08/20 04:52 Glucose 142 mg/dl (70-99) H 01/08/20 04:52 Estimat Average Glucose 137 mg/dl 01/06/20 23:30 Hemoglobin A1c 6.4 % (4.5-5.6) H 01/06/20 23:30 Calcium 7.6 mg/dl (8.5-10.1) L 01/08/20 04:52 Magnesium 2.2 mg/dl (1.8-2.4) 01/06/20 23:30 Iron 33 mcg/dl (35-175) L 01/07/20 05:41 TIBC 316 mcg/dl (250-450) 01/07/20 05:41 Transferrin 242 mg/dl (200-360) 01/07/20 05:41 Ferritin 206.5 ng/ml (8-388) 01/07/20 05:41 Total Bilirubin 1.0 mg/dl (0.2-1) 01/07/20 05:41 Direct Bilirubin 0.1 mg/dl (0-0.2) 01/07/20 05:41 AST 47 U/L (15-37) H 01/07/20 05:41 ALT 58 U/L (12-78) 01/07/20 05:41 Alkaline Phosphatase 37 U/L (45-117) L 01/07/20 05:41 Total Protein 6.8 gm/dl (6.4-8.2) 01/07/20 05:41 Albumin 3.3 gm/dl (3.4-5.0) L 01/07/20 05:41 Vitamin B12 715 pg/ml (211-911) 01/07/20 05:41 Folate 20.34 ng/ml (>5.38) 01/07/20 05:41 TSH 5.650 uIu/ml (0.300-4.500) H 01/07/20 05:41 Free T4 0.85 ng/dl (0.8-1.6) 01/07/20 05:41 Urine Color Yellow 01/07/20 04:30 Urine Appearance Clear (Clear) 01/07/20 04:30 Urine pH 5.0 (4.5-7.5) 01/07/20 04:30 Ur Specific [place] 1.023 (1.000-1.030) 01/07/20 04:30 Urine Protein Negative (Negative) 01/07/20 04:30 Urine Glucose (UA) Negative (Negative) 01/07/20 04:30 Urine Ketones Negative (Negative) 01/07/20 04:30 Urine Blood Negative (Negative) 01/07/20 04:30 Urine Nitrite Negative (Negative) 01/07/20 04:30 Urine Bilirubin Negative (Negative) 01/07/20 04:30 Urine Urobilinogen Negative (Negative) 01/07/20 04:30 Ur Leukocyte Esterase Negative (Negative) 01/07/20 04:30 Stool Occult Bld Scrn Negative (Negative) 01/07/20 20:52 Blood Type A Positive 01/06/20 23:30 Antibody Screen NEGATIVE 01/06/20 23:30
--- NOTE | 2020-01-08 11:53 | Hospitalist Progress Note ---
Date of Service January 08, 2020 Assessment & Plan (1) Hip fracture, right: Traumatic hip fracture S/P ORIF yesterday Pain is well controlled Awaiting PT/OT Likely discharge home tomorrow with HH Aspirin recommended for DVT ppx per ortho (2) Hypertension Continue home lisinopril hydrochlorothiazide (3) Hypokalemia Resolved (4) Leukocytosis Likely reactive following fracture TSH is elevated. Check free T4 Follow-up A1c (5) Prostate cancer status post surgery on Lupron Also on Xgeva (6) Anemia Likely acute blood loss anemia from surgery as Hb dropped from 13 on admission to 10.6 this AM Asymptomatic Monitor Full code Admission and Anticipated Discharge Date Admission Date: January 07, 2020 Subjective Patient is seen and examined. Patient reports pain is well controlled. Had open reduction and internal fixation of right displaced subtrochanteric hip fracture yesterday Patient has no other complaint Physical Exam Constitutional: + well hydrated; no acute distress Eyes: PERRL, conjunctivae normal, anicteric sclerae ENMT: external ear and nose normal, oropharynx normal Respiratory: normal respiratory effort, lungs clear to auscultation Cardiovascular: Rate/Rhythm: regular rate and regular rhythm Extremities: no pedal edema Gastrointestinal (Abdomen): normal bowel sounds, soft, nontender, no hepatosplenomegaly Musculoskeletal: Clean dressing over right hip Neurologic: PERRL, EOMI, accommodation nl, no face palsy, no dysarthria Psychiatric: A+Ox3, euthymic affect Results & Data ([facility]) Vital Signs (Past 12 Hours) Vital Signs Temp Pulse Resp BP BP Pulse Ox Pulse Ox 01/08/20 11:10 36.7 C 92 H 20 150/59 H 94 01/08/20 07:08 36.8 C 55 L 20 115/71 92 01/08/20 00:05 92 Laboratory Results Short CBC 01/08/20 Range/Units 04:52 WBC 12.12 H (4.8-10.8) K/uL Hgb 10.6 L (14.0-18.0) g/dL Hct 31.4 L (42-52) % Plt Count 169 (130-400) K/uL BMP 01/08/20 04:52 Sodium 135 L Potassium 4.2 Chloride 103 Carbon Dioxide 25 BUN 19 H Creatinine 0.86 Glucose 142 H Calcium 7.6 L
[2020-01-09 06:49] LABS: Hematocrit (blood only) 30.2 % (42-52); Hemoglobin 10.4 g/dL (14.0-18.0); Mean Corpuscular Hemoglobin 31.2 pg (25-34); Mean Corpuscular Hgb Conc 34.4 g/dL (32-36); Mean Corpuscular Volume 90.7 fL (80-100); Mean Platelet Volume 9.6 fL (7.4-10.4); Platelet Count 152 K/uL (130-400); RDW Coefficient of Variation 13.7 % (11.5-14.5); RDW Standard Deviation 45.4 fL (36.4-46.3); Red Blood Count 3.33 M/uL (4.7-6.1); White Blood Count 11.33 K/uL (4.8-10.8)
[2020-01-09 07:30] LABS: BUN Creatinine Ratio 17.5 (10-20); Calcium 7.8 mg/dl (8.5-10.1); Creatinine Clr Calc Pharmacy 89.1 ml/min; Est GFR (African American) 97.2; Est GFR (Non-African American) 83.8; Potassium 3.6 mmol/L (3.5-5.1)
--- NOTE | 2020-01-09 07:41 | Orthopedic Progress Note ---
Date of Service January 09, 2020 Assessment & Plan (1) Closed fracture of proximal end of femur: POD 2 s/p Right TFN. PT/OT - PWB DVT Prophylaxis - ASA bid, SCD's Continue current pain regimen DC planning - services Pt appears to be doing well. Ortho will sign off at this time. DC instructions placed in EHR dc section. Please call with any questions. Admission and Anticipated Discharge Date Admission Date: January 07, 2020 Subjective Pt sitting up in chair at bedside. No complaints this AM. Comfortable. Pain controlled. No new complaints. States he is going to go home with HH services. Physical Exam Physical Exam: Dressings C/D/I. Thigh with mild swelling but soft. Calves soft,NT. NV intact. Results & Data ([facility]) Vital Signs (Past 12 Hours) Vital Signs Temp Pulse Resp BP Pulse Ox 01/08/20 23:00 37.3 C 108 H 18 126/69 92 Laboratory Results Laboratory Results WBC 11.33 K/uL (4.8-10.8) H 01/09/20 06:27 RBC 3.33 M/uL (4.7-6.1) L 01/09/20 06:27 Hgb 10.4 g/dL (14.0-18.0) L 01/09/20 06:27 Hct 30.2 % (42-52) L 01/09/20 06:27 MCV 90.7 fL (80-100) 01/09/20 06:27 MCH 31.2 pg (25-34) 01/09/20 06:27 MCHC 34.4 g/dL (32-36) 01/09/20 06:27 RDW Std Deviation 45.4 fL (36.4-46.3) 01/09/20 06:27 RDW Coeff of Pamela 13.7 % (11.5-14.5) 01/09/20 06:27 Plt Count 152 K/uL (130-400) 01/09/20 06:27 MPV 9.6 fL (7.4-10.4) 01/09/20 06:27 Immature Gran % (Auto) 0.3 % 01/07/20 05:41 Neut % (Auto) 83.3 % 01/07/20 05:41 Lymph % (Auto) 10.5 % 01/07/20 05:41 [place] % (Auto) 5.8 % 01/07/20 05:41 Eos % (Auto) 0.0 % 01/07/20 05:41 Baso % (Auto) 0.1 % 01/07/20 05:41 Immature Gran # (Auto) 0.04 K/uL (0.00-0.02) H 01/07/20 05:41 Neut # (Auto) 11.96 K/uL (1.4-6.5) H 01/07/20 05:41 Lymph # (Auto) 1.51 K/uL (1.2-3.4) 01/07/20 05:41 [place] # (Auto) 0.84 K/uL (0.11-0.59) H 01/07/20 05:41 Eos # (Auto) 0.00 K/uL (0-0.5) 01/07/20 05:41 Baso # (Auto) 0.01 K/uL (0-0.2) 01/07/20 05:41 PT 11.5 Seconds (9.0-12.0) 01/06/20 23:30 INR 1.1 (0.9-1.1) 01/06/20 23:30 APTT 22.8 Seconds (21.0-31.0) 01/06/20 23:30 PTT Ratio 0.8 01/06/20 23:30 Sodium 132 mmol/L (136-145) L 01/09/20 06:27 Potassium 3.6 mmol/L (3.5-5.1) 01/09/20 06:27 Chloride 101 mmol/L (98-107) 01/09/20 06:27 Carbon Dioxide 27 mmol/L (21-32) 01/09/20 06:27 Anion Gap 4.0 (3-11) 01/09/20 06:27 BUN 15 mg/dl (7-18) 01/09/20 06:27 Creatinine 0.87 mg/dl (0.6-1.4) 01/09/20 06:27 Est Cr Clr Drug Dosing 89.1 ml/min 01/09/20 06:27 Est GFR ( Amer) 97.2 01/09/20 06:27 Est GFR (Non-Af Amer) 83.8 01/09/20 06:27 BUN/Creatinine Ratio 17.5 (10-20) 01/09/20 06:27 Glucose 137 mg/dl (70-99) H 01/09/20 06:27 Estimat Average Glucose 137 mg/dl 01/06/20 23:30 Hemoglobin A1c 6.4 % (4.5-5.6) H 01/06/20 23:30 Calcium 7.8 mg/dl (8.5-10.1) L 01/09/20 06:27 Magnesium 2.2 mg/dl (1.8-2.4) 01/06/20 23:30 Iron 33 mcg/dl (35-175) L 01/07/20 05:41 TIBC 316 mcg/dl (250-450) 01/07/20 05:41 Transferrin 242 mg/dl (200-360) 01/07/20 05:41 Ferritin 206.5 ng/ml (8-388) 01/07/20 05:41 Total Bilirubin 1.0 mg/dl (0.2-1) 01/07/20 05:41 Direct Bilirubin 0.1 mg/dl (0-0.2) 01/07/20 05:41 AST 47 U/L (15-37) H 01/07/20 05:41 ALT 58 U/L (12-78) 01/07/20 05:41 Alkaline Phosphatase 37 U/L (45-117) L 01/07/20 05:41 Total Protein 6.8 gm/dl (6.4-8.2) 01/07/20 05:41 Albumin 3.3 gm/dl (3.4-5.0) L 01/07/20 05:41 Vitamin B12 715 pg/ml (211-911) 01/07/20 05:41 Folate 20.34 ng/ml (>5.38) 01/07/20 05:41 TSH 5.650 uIu/ml (0.300-4.500) H 01/07/20 05:41 Free T4 0.85 ng/dl (0.8-1.6) 01/07/20 05:41 Urine Color Yellow 01/07/20 04:30 Urine Appearance Clear (Clear) 01/07/20 04:30 Urine pH 5.0 (4.5-7.5) 01/07/20 04:30 Ur Specific [place] 1.023 (1.000-1.030) 01/07/20 04:30 Urine Protein Negative (Negative) 01/07/20 04:30 Urine Glucose (UA) Negative (Negative) 01/07/20 04:30 Urine Ketones Negative (Negative) 01/07/20 04:30 Urine Blood Negative (Negative) 01/07/20 04:30 Urine Nitrite Negative (Negative) 01/07/20 04:30 Urine Bilirubin Negative (Negative) 01/07/20 04:30 Urine Urobilinogen Negative (Negative) 01/07/20 04:30 Ur Leukocyte Esterase Negative (Negative) 01/07/20 04:30 Stool Occult Bld Scrn Negative (Negative) 01/07/20 20:52 Blood Type A Positive 01/06/20 23:30 Antibody Screen NEGATIVE 01/06/20 23:30
[2020-01-09] MEDS: ASPIRIN 81 MG ECTAB PO SCH (08:24)
[2020-01-09] MEDS: lisinopriL 20 MG TAB PO SCH (08:24)
[2020-01-09] MEDS: allopurinoL 300 MG TAB PO SCH (08:25)
[2020-01-09] MEDS: ROSUVASTATIN CALCIUM 10 MG TAB PO SCH (08:25)
[2020-01-09] MEDS: CHOLECALCIFEROL 1,000 UNITS 25 MCG TAB PO SCH (08:25)
[2020-01-09] MEDS: DOCUSATE SODIUM 100 MG CAP PO SCH (08:30)
--- NOTE | 2020-01-09 10:55 | Discharge Summary ---
Date of Service January 09, 2020 Admission HPI Per Admitting Provider History obtained from patient and records. Medical history significant for hypertension, hyperlipidemia, gout, prediabetes, prostate cancer status post surgery on Xgeva and Lupron Rx. Patient at a local campsite the last few days the last few days. His right hip bumped into a table at the picnic site because it was too dark. Patient experience excruciating right hip pain which made him sit down. No chest pain, S OB, no LOC. Patient brought to the ER for evaluation. 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 Baseline Functionality : Still able to do housework at home without rest/exertional chest pain, S OB prior to injury Admission Exam Per Admitting Provider GENERAL: Comfortable, obese, pleasant, no respiratory distress SKIN: Pallor , warm HEENT: Pale palpebral conjunctivae, no ptosis, dry buccal mucosa NECK : Supple, short neck, no tenderness CHEST : CTA, no tenderness HEART : RRR, systolic murmur ABDOMEN: Some distention, nontender EXTREMITIES : Right hip rotation with right hip tenderness no other conspicuous deformities noted NEUROLOGIC : Coherent, no facial asymmetry, no other gross focality Principal Diagnosis Right hip fracture S/P ORIF Acute blood loss anemia Discharge Exam Constitutional + well hydrated; no acute distress Eyes PERRL, conjunctivae normal, anicteric sclerae ENMT external ear and nose normal, oropharynx normal Respiratory normal respiratory effort, lungs clear to auscultation Cardiovascular Rate/Rhythm: regular rate and regular rhythm Extremities: no pedal edema Gastrointestinal (Abdomen) normal bowel sounds, soft, nontender, no hepatosplenomegaly Musculoskeletal Clean dressing over right hip No tenderness on palpation. Neurologic PERRL, EOMI, accommodation nl, no face palsy, no dysarthria Psychiatric A+Ox3, euthymic affect Discharge Data Allergies Allergy/AdvReac Type Severity Reaction Status Date / Time No Known Allergies Allergy Unverified 01/07/20 00:56 Consultations 01/07/20 01:04 Consult Orthopedic Surgery Routine ED Decision to Admit Stat 01/07/20 02:40 Consult Case Management - Discharge Planning Routine Consult Case Management - Discharge Planning Routine Procedures Performed Operation Date: 01/07/20 12:00 Actual Procedures p Intramedullary Kody Right Femur, Open internal fixation right femur(Right) - Fercho Brooks DO Ordered Studies 01/07/20 10:52 FL fluoroscopy <1hr Routine FL hip RT 2-3V Routine XR pelvis 1-2V routine, XR femur RT 2V routine HISTORY: 74 years-old Male fall, right femur injury acute pain of the pelvis and right femur status post fall COMPARISON: None TECHNIQUE: AP view of the pelvis with 2 views of the right femur FINDINGS: PELVIS: 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 No acute fracture or dislocation of the left hip. There is an acute transverse fracture of the proximal diaphyseal aspect of the right femur, approximately 3.0 cm distal to the inferior aspect of the lesser trochanter. There is 4.5 cm apposition and 3.4 cm medial displacement with 14 degrees apex lateral angulation. Surgical clips project over the pelvis. Vascular calcifications are noted. FEMUR: Acute proximal femoral fracture as above with the femoral shaft component displaced posteriorly 5.0 cm. Mid and distal aspects of the femur appear intact. Osteoarthritis of the knee. Soft tissue swelling of the distal thigh.. IMPRESSION: Acute displaced, angulated and foreshortened fracture of the right proximal femoral diaphysis Hospital Course (1) Hip fracture, right: Traumatic hip fracture S/P ORIF on 01/07/2020 Pain is well controlled with tylenol only Aspirin recommended for DVT ppx per ortho Evaluated by PT/OT Discharged home with home health. Script given for walker and bedside commode (2) Hypertension Controlled Continue home lisinopril hydrochlorothiazide (3) Hypokalemia K was 3.2 on admission Resolved (4) Leukocytosis Was 12.6 on admission, went up to 14, now 11 today Likely reactive following fracture (5) Prediabetes A1c is 6.4 Counselled on lifestyle modifications TSH is elevated at 5.65. Free t4 low normal at 0.85. Asymptomatic (6) Prostate cancer status post surgery on Lupron Also on Xgeva (7) Anemia Likely acute blood loss anemia from surgery as Hb dropped from 13 on admission to 10.6 post op Stable at 10.4 this AM Asymptomatic Monitor Total Time Total Time Spent Total Time Spent (In Minutes): 35 Total Time Includes: Examination of the Patient, Discharge Planning and Medication Reconciliation Discharge Plan Discharge Items Reason For Visit: RT HIP FX, PVCS Discharge Diagnosis: Right Hip Fracture Activity: Per Instructions section Weightbearing: Right partial Weightbearing Comment: partial weightbearing with walker or crutches Non-emergency contact: Surgeon Call non-emergency contact if: your pain is not controlled, your temperature is above 101.5, your wound has increased redness and your wound has increased drainage Follow-up/Referrals: Eve Larose PA-C [Outside Practitioners] - 01/11/20 10:45 am Diet: Regular and Heart Healthy Addtl Attending Provider Instructions: Mr Braxton. You came to the hospital after you bumped into a table and developed right hip pain. You were evaluated and found to have right hip fracture. You had surgery for this. Please refer to additional Customer Care Manager instructions for the Orthopedic surgeon's recommendations. It was a pleasure taking care of you. Addtl Customer Care Manager Provider Instructions: [facility] DISCHARGE INSTRUCTIONS: HIP FRACTURE SELF CARE INSTRUCTIONS: A. You are to ambulate with a walker or crutches for approximately 6 weeks. B. You are PARTIAL WEIGHT BEARING on your operative lower extremity for at least 6 weeks. C. Wear low heeled shoes with non-slip soles D. Be sure that your floors are free of things that could trip you throw rugs, electrical cords, and small objects. Avoid wet and waxed floors, especially with crutches/walker/cane. E. Try to walk several times a day with rest periods between. F. You may shower 48 hours after surgery and get the incision area wet, but DO NOT soak or submerge incision area in water. (No baths, swimming pools, hot tubs) G. Change your dressing daily. If you have no drainage from the incisions, you may shower. No direct shower pressure on the wounds. Do not soak the wounds. No tub baths. H. Do NOT apply soap or any ointment/lotions directly over incision. You may clean around the incision. I. You may use ice as needed to operative site. SPECIAL CARE INSTRUCTIONS: VERY IMPORTANT TO READ AND REVIEW A. You may be at risk for phlebitis or blood clots. a. Wear surgical stockings (VIV hose) for 2 weeks after surgery to improve circulation and reduce swelling. b. Take ASPIRIN 81mg by mouth twice daily for 4 weeks or as directed. This is your blood thinner. B. There are a few signs you need to watch for after you are home. Call [facility] at [phone] if you experience any of the following: a. If you have a temperature of 101 degrees or higher. b. Sudden increase in pain in your hip not relieved by res t or pain medication. c. Any fluid or drainage from the incision; redness of the incision. d. Shortness of breath or chest pain. . C. Call your physician if: a. You have any unanswered questions or concerns. D. Pain Medication: a. You will be prescribed pain medication upon discharge that should last till your first post-operative appointment. b. If you experience nausea and/or skin rash, discontinue this medication and contact our office for an alternative medication. c. Caution- narcotic pain medication can cause constipation. FOLLOW UP VISIT: Please call [facility] at [phone] to schedule a follow up appointment 10-14 days from the date of your surgery date. Pending Studies at Discharge: No Stand-Alone Forms: My [employer], Smoking Cessation Medications and DC Order Prescriptions: New acetaminophen [Mapap (acetaminophen)] 325 mg Tablet 650 mg PO Q4H PRN (Reason: pain) Qty: 50 RF: 0 Continued magnesium 250 mg Tablet 250 mg PO QAM RF: 0 cholecalciferol (vitamin D3) [Vitamin D3] 25 mcg (1,000 unit) Tablet 500 unit PO QAM RF: 0 potassium gluconate 600 mg (99 mg) Tablet 99 mg PO QAM RF: 0 Lupron Depot (3 month) 11.25 mg Syringe Kit 125 mg IM . EVERY 3 MONTHS RF: 0 lisinopril-hydrochlorothiazide 20-12.5 mg Tablet 1 tab PO DAILY RF: 0 allopurinol 300 mg Tablet 300 mg PO DAILY RF: 0 rosuvastatin [Crestor] 10 mg Tablet 10 mg PO DAILY RF: 0 omega 1-lcl-mur-fish oil [Fish Oil] 1,000 mg (120 mg-180 mg) Capsule 1 cap PO QAM RF: 0 Xgeva 120 mg/1.7 mL (70 mg/mL) Solution 22.5 mg subcut . Q 3 MONTHS RF: 0 red yeast rice 600 mg Tablet 600 mg PO QAM RF: 0 Caltrate 600 plus D 600 mg (1,500 mg)-800 unit Tablet,Chewable 1 tab PO TID RF: 0 Changed aspirin 81 mg Tablet,Delayed Release (/Ec) 81 mg PO BID 30 Days Qty: 60 RF: 1 Rafia/Other Patient Handouts: Prediabetes, A1C Admission Data Admit Date/Time: 01/07/20 01:42 Attending Provider: Maye Zavala I. Admit Provider: Jefry Bauman Primary Care Provider: PCP,NO Other Providers: Jefry Bauman ; Fercho Brooks Other Interventions: Discharge Summary Assessment (RN) Last Done: 01/09/20 10:56 DC Date/Time DO NOT enter until pt leaves facility: 01/09/20 15:05
[2020-01-09] MEDS: OXYCODONE HCL IR 5 MG TAB (IMMEDIATE RELEASE) PO PRN (13:57)
== END 2020-01-09 15:05 | disposition home health service (06) | DRG 481 ==
LOC: ED 23:11 → 2W 01-07 01:42 → 3N 01-07 17:03 → UNDODISIN 01-09 14:06